=== PATIENT | male | born 1960 | race Caucasian/White ===

== ENCOUNTER 2022-10-28 17:19 | Emergency (ER) | payer BC, SELFPAY ==
[2022-10-28 17:21] VITALS: BP 138/97; PULSE 70; RESP 16; TEMP 36.4; O2SAT 98; BMI 28.5
--- NOTE | 2022-10-28 17:41 | EDS_ITS ---
HPI History of Present Illness Chief Complaint: Lower Extremity Injury Detail of Chief Complaint: Right knee pain and right leg swelling. Informant: patient Onset/Context/Timing Onset: Weeks (2 weeks) Context: Gradual Onset Narrative Narrative: Patient has had increased travel recently with a lot of walking. He is currently visiting from the [facility]. He states he has bad knees at baseline with essentially [id number]. Over the past 2 weeks he had increased right knee pain and feels that his right leg is more swollen. He has some chronic right leg swelling secondary to a prior DVT. He is on Coumadin. His INR was last checked 2 weeks ago. He has been taking ibuprofen for pain without improvement. He is scheduled to be in the area for the next 1 to 2 weeks. [facility] Medical History DVT (deep venous thrombosis) GERD (gastroesophageal reflux disease) HLD (hyperlipidemia) HTN (hypertension) Home Medications atorvastatin 40 mg tablet 40 mg PO DAILY 10/28/22 [History Last Taken Unknown] enoxaparin 100 mg/mL subcutaneous syringe (Lovenox) 100 mg subcut Q12H #8 mL 10/28/22 [Rx Last Taken Unknown] hydrocodone-acetaminophen 5-325mg 5mg-325mg 1 tab PO Q6H PRN pain 3 days #10 tabs 10/28/22 [Rx Last Taken Unknown] lisinopril 10 mg tablet 20 mg PO DAILY 10/28/22 [History Last Taken Unknown] omeprazole 20 mg tablet,delayed release 20 mg PO DAILY 10/28/22 [History Last Taken Unknown] warfarin 7.5 mg tablet 7.5 mg PO DAILY 10/28/22 [History Last Taken Unknown] Allergy/AdvReac Type Severity Reaction Status Date / Time No Known Allergies Allergy Verified 10/28/22 17:21 Social History Smoking Status: Never smoker ROS ROS ED Constitutional Constitutional ED: Denies chills or fever(s) Eyes Eyes: Denies change in vision or discharge from eye(s) ENT ENT ED: Denies discharge from eye(s), rhinorrhea or sore throat Cardiovascular Cardiovascular: Denies chest pain or palpitations Respiratory/Chest Respiratory/Chest: Denies cough or dyspnea Gastrointestinal Gastrointestinal: Denies abdominal pain, nausea or vomiting Musculoskeletal Musculoskeletal: Reports extremity pain Integumentary Denies Abrasions or rash Neurologic Neurologic: Denies headache(s) or weakness Psychiatric Psychiatric: Denies anxiety or depression Allergic/Immunologic Allergic/Immunologic ED: Denies lip swelling or urticaria EXAM Physical Exam Const Vital Signs: 10/28/22 17:21 Temperature 97.6 F L Temperature Source Temporal Pulse Rate 70 Respiratory Rate 16 Blood Pressure 138/97 H Blood Pressure Mean 110 Pulse Ox 98 Oxygen Delivery Method Room Air Positive well nourished and well developed General Appearance ED: well developed HEENT Reports normocephalic and head/scalp atraumatic Eyes PERRL and EOMs intact bilaterally Neck supple Chest Wall inspection of chest normal and palpation of chest normal Resp normal respiratory effort and clear to auscultation bilaterally Cardio regular rate and regular rhythm GI normal to inspection, nondistended, normoactive bowel sounds Palpation: soft Back/Spine no CVA tenderness Extremity Extremity Narrative: Fall edema noted the right lower leg. Strong distal pulses. Normal sensation. No focal bony tenderness over the knee. Slight decreased range of motion secondary to edema. Neuro oriented x3 and no sensory deficits noted Sensorium / Orientation: alert Motor Exam: strength 5/5 throughout Psych mental status grossly normal Skin no rashes or lesions noted MDM MDM MDM Narrative Medical decision making narrative: Right knee x-ray obtained. INR ordered along with venous ultrasound of the right leg. Lab Data Attestation: I reviewed the patient's lab results. Labs: Laboratory Results - last 24 hr 10/28/22 17:55 PT 21.4 H INR 1.9 Radiography Diagnostic Testing: Clinical Impression(s) from Imaging Studies Venous Duplex 10/28/22 17:54 IMPRESSION: Deep venous thrombosis of the right popliteal vein. Electronically Signed: Jose Lua MD at 19:02 EST Reading Location ID and State: [facility] / [place] , Service support , ADDENDUM: 10/28/221937 IMPRESSION: Deep venous thrombosis of the right popliteal vein. N.B. : Merary Gonzalez MD, confirmed on 10/28/2022 19:32:03 (ET) that the healthcare facility has received the radiology report. Electronically Signed: Jose Lua MD at 19:02 EST , Knee X-Ray 10/28/22 18:20 IMPRESSION: Degenerative arthrosis. Electronically Signed: Jose Lua MD at 18:57 EST , Treatment and Re-Evaluation Narrative: INR slightly subtherapeutic at 1.9. Right knee x-ray per my interpretation reveals arthritic changes with no acute finding. Radiology interpretation is reviewed. Venous ultrasound of the right leg does reveal an acute DVT in the right popliteal vein. Test results are discussed with the patient. His INR is subtherapeutic tonight. He states that his color sprayer really wants him on Coumadin and not another anticoagulant. We will cover him with Lovenox for the next 4 days while he increases his Coumadin dose. He states he plans to return home this weekend and will have his INR rechecked on Thursday. I encouraged the patient not to take too much Motrin as he is on Coumadin. In place at this time we will write him for [place] for pain control. Discharge Plan Triage Chief Complaint: Lower Extremity Injury ED Provider: Merary Gonzalez Dx/Rx/DC Orders Clinical Impression: DVT (deep venous thrombosis) Instructions: ED Deep Vein Thrombosis (DVT) Prescriptions: New enoxaparin [Lovenox] 100 mg/mL syringe 100 mg subcut Q12H Qty: 8 0RF hydrocodone-acetaminophen 5-325 mg tablet 1 tab PO Q6H PRN (Reason: pain) 3 Days Qty: 10 0RF No Action atorvastatin 40 mg Tablet 40 mg PO DAILY warfarin 7.5 mg Tablet 7.5 mg PO DAILY lisinopril 10 mg Tablet 20 mg PO DAILY omeprazole 20 mg Tablet,Delayed Release (Dr/Ec) 20 mg PO DAILY Primary Care Provider: [facility] ,Out of Referrals: [facility] Doctor,Out of [Primary Care Provider] - 5-7 Days Activity Restrictions/Additional Instructions: As discussed, please have your INR rechecked on Thursday or Thursday. Disposition Disposition: Home, Self Care Discharge Date/Time: 10/28/22 20:00
--- NOTE | 2022-10-28 17:54 | US_ITS ---
ACR Level 3 findings have been noted. An addendum which confirms receipt of the report will follow. STUDY: VENOUS DOPPLER ULTRASOUND - RIGHT LOWER EXTREMITY REASON FOR EXAM: Male, 62 years old. RT POSTERIOR KNEE PAIN TECHNIQUE: Ultrasound evaluation of the deep vein system to include flores-scale imaging and compression was performed. Flores-scale imaging and Doppler sonographic evaluation, including duplex spectral analysis and qualitative color flow sonography, was performed. COMPARISON: None. FINDINGS: Common Femoral Vein: Normal compression, spontaneity and augmentation. Normal color Doppler. Common Femoral Vein/Greater Saphenous Junction: Normal compression, spontaneity and augmentation. Normal color Doppler. Deep Femoral Vein: Normal compression, spontaneity and augmentation. Normal color Doppler. Femoral Proximal: Normal compression, spontaneity and augmentation. Normal color Doppler. Femoral Middle: Normal compression, spontaneity and augmentation. Normal color Doppler. Femoral Distal: Normal compression, spontaneity and augmentation. Normal color Doppler. Popliteal Vein: Incomplete compression. Echogenic material within the lumen. Diminished flow. Posterior Tibial Vein: Normal compression, spontaneity and augmentation. Normal color Doppler. Peroneal Vein: Normal compression, spontaneity and augmentation. Normal color Doppler. The above findings are consistent with an acute thrombosis. US/Venous Duplex Imag/Limited/Uni IMPRESSION: Deep venous thrombosis of the right popliteal vein. Electronically Signed: Jose Lua MD at 19:02 EST ,
--- NOTE | 2022-10-28 18:20 | RAD_ITS ---
STUDY: X-RAY - RIGHT KNEE REASON FOR EXAM: Male, 62 years old. Pain TECHNIQUE: 4 view(s) of the knee. COMPARISON: None. FINDINGS: Normal visualized distal femur. Normal visualized proximal tibia and fibula. Normal proximal tibiofibular articulation. There is no demonstrated fracture. There is moderate degenerative arthrosis of the medial femorotibial compartment with moderate joint space narrowing. There is moderate degenerative arthrosis of the lateral femorotibial compartment with moderate joint space narrowing. There is moderate degenerative arthrosis of the patellofemoral articulation. The soft tissue structures are unremarkable. RAD/Knee 4 or More Views IMPRESSION: Degenerative arthrosis. Electronically Signed: Jose Lua MD at 18:57 EST ,
[2022-10-28 18:31] LABS: International Normalized Ratio 1.9; Prothrombin Time (Protime)PT. 21.4 SECONDS (11.7-14.9)
[2022-10-28] MEDS: Enoxaparin 100 MG/ML Syringe SC (19:46)
== END 2022-10-28 20:00 | disposition home or self-care (01) ==
PROVIDERS: Emergency Provider Emergency Medicine; Visit Provider Emergency Medicine
DX: I82.401 Acute embolism and thrombosis of unspecified deep veins of right lower extremity (principal); I10 Essential (primary) hypertension; E78.5 Hyperlipidemia, unspecified; K21.9 Gastro-esophageal reflux disease without esophagitis; Z79.899 Other long term (current) drug therapy; Z79.01 Long term (current) use of anticoagulants; Z86.718 Personal history of other venous thrombosis and embolism
CPT/HCPCS: 36415; 73564; 85610; 93971; 99282